=== PATIENT | male | born 1975 | race Caucasian/White ===

== ENCOUNTER → 2017-01-31 | Outpatient (CLI) | payer OTHER ==
--- NOTE | 2017-01-31 11:52 | KCIC ---
MR of the left shoulder Indication: Pain. Technique: Standard multiplanar sequences are obtained. Findings: Acromioclavicular joint: Mildly degenerative with very small undersurface osteophytes. Rotator cuff: Diffuse rotator cuff tendinosis. There is an intrasubstance fluid defect of the anterior supraspinatus tendon footprint measuring 10 mm AP by 10 mm wide and involving most of the transverse with. However, there is a thin layer of overlying intact undersurface and bursal surface without exposure. No rotator cuff surface tear identified. Glenohumeral cartilage: No acute defect or advanced DJD. Fluid: No significant joint effusion. Labrum: No evidence of labral tear or para labral cyst. Biceps tendon: Intact Bones: No lesion or acute fracture. Soft tissue: No acute findings. Impression:Rotator cuff tendinosis. Concealed intrasubstance tear or defect of the anterior supraspinatus tendon. No surface tear or rupture of the rotator cuff. Electronically signed by: Otto Youngblood MD (01/31/2017 11:48 AM) [id number]
== END | disposition home or self-care (01) ==
LOC: KCIC MRI 09:50
PROVIDERS: ATTEND Orthopaedic Surgery
DX: M25.712 Osteophyte, left shoulder (principal); M75.102 Unspecified rotator cuff tear or rupture of left shoulder, not specified as traumatic
CPT/HCPCS: 73221